=== PATIENT | female | born 1975 | race African-American/Black ===

== ENCOUNTER → 2019-06-19 | Emergency (ER) | payer SELFPAY ==
--- OUTSIDE RECORDS SUMMARY | 2019-06-19 17:55 | XMS REPORT ---
[facility] Address Unknown Phone Unavailable Care Team Providers Care Patient Insurance Clerk Name Role Phone Unavailable Unavailable Payers Payer Name Policy Type Policy Number Effective Date Expiration Date Problems This patient has no known problems. Allergies, Adverse Reactions, Alerts Allergy Name Allergy Type Status Severity Reaction(s) Onset Date Inactive Date Treating Clinician Comments NSAIDS (Non-Steroidal Anti-Inflamma DA Active [place] 2018-11-28 00:00:00 aspirin DA Active 2018-11-28 00:00:00 NSAIDS (Non-Steroidal Anti-Inflamma DA Active [place] 2017-01-13 00:00:00 aspirin DA Active [place] 2017-01-13 00:00:00 Medications This patient has no known medications. Encounters Start Date/Time End Date/Time Encounter Type Admission Type Attending Clinicians Care Facility Care Department Encounter ID 2018-12-04 23:17:00 2018-12-04 23:17:00 Emergency E [facility] [id number] 2018-10-10 19:02:00 2018-10-10 19:02:00 Emergency E [facility] [id number] 2018-09-29 20:36:00 2018-09-29 20:36:00 Emergency E [facility] 7508 2018-09-02 07:16:00 2018-09-02 07:16:00 Outpatient E [facility] CAR 7507 Results Test Description Test Time Test Comments Text Results Atomic Results Result Comments - XR KNEE 1 OR 2 V RT 2019-02-19 02:50:00 FAX: Ronald Escobedo MD [phone] [place]: St: REG FAX: Mateo Hale MD [phone] Name: ILENE ROBLERO [facility] : 1975 Age/S: 44/F [address] [place] [address] Unit #: [id number] Loc: [place] [address] Phys: Ronald Monson MD Acct: [id number] Dis Date: Status: REG ER PHONE #: [phone] Exam Date: 02/19/2019 0240 FAX #: [phone] Reason: right knee pain, and swelling , acute . last 3 EXAMS: CPT CODE: [id number] XR KNEE 1 OR 2 V RT [address]12 EXAM: CR, XR KNEE 1 OR 2 VIEW RT: 02/19/2019, 0215 hours History: Right knee pain and swelling COMPARISON: 11/28/2018 Findings: AP and lateral view of the right knee are submitted. Osseous alignment is satisfactory. Knee joint is intact. There are no acute fracture, dislocation or lytic bony lesion. Mild degenerative changes noted. No radiopaque foreign body seen. No appreciable joint effusion seen Visualized left hemithorax is unremarkable. Soft tissues are unremarkable. If indicated, follow-up radiograph or MR scan can be obtained for complete assessment IMPRESSION: 1. No acute fracture or dislocation of the right knee seen. SL:[JSYED-H] at 0250 Reported and signed by: Sae Woods M.D. CC: Ronald Monson MD; Mateo Arora MD Technologist: Ryan Clarso RT(R) Trnscrd Date/Time/By: 02/19/2019 (249) : By: [email or web address] Orig Print D/T: S: 02/19/2019 (0253) PAGE 1 Signed Report BASIC METABOLIC PANEL 2019-02-19 01:40:00 SODIUM (test code=NA) 142 mEq/L 134-147 POTASSIUM (test code=K) 4.0 mEq/L 3.4-5.0 CHLORIDE (test code=CL) 107 mEq/L 100-108 CARBON DIOXIDE (test code=CO2) 28 mEq/L 21-33 ANION GAP (test code=GAP) 11 0-20 GLUCOSE (test code=GLU) 106 mg/dL 70-110 BLOOD UREA NITROGEN (test code=BUN) 7 mg/dL 7-18 GLOMERULAR FILTRATION RATE (test code=GFR) 94.3 95-105 Units of measure=ml/min/1.73 m2 CREATININE (test code=CREAT) 0.8 mg/dL 0.6-1.3 CALCIUM (test code=CA) 8.7 mg/dL 8.0-10.5 HEPATIC FUNCTION [id number] 01:40:00* Test Item Value Reference Range Comments TOTAL PROTEIN (test code=PROT) 7.3 g/dL 6.4-8.2 ALBUMIN (test code=ALB) 3.70 g/dL 3.4-5.0 BILIRUBIN TOTAL (test code=BILT) 0.4 MG/DL <1.5 BILIRUBIN DIRECT (test code=BILD) 0.20 MG/DL 0.0-0.30 BILIRUBIN INDIRECT (test code=BILIND) 0.20 MG/DL SGOT/AST (test code=AST) 17 IUnit/L 15-37 SGPT/ALT (test code=ALT) 14 IUnit/L 15-65 ALKALINE PHOSPHATASE TOTAL (test code=ALKP) 65 IUnit/L 20-125 HCG SERUM [id number] 01:40:00* Test Item Value Reference Range Comments HCG SERUM QUAL (test code=HCGQL) SERUM NEGATIVE NEGATIVE [id number] 01:40:00* Test Item Value Reference Range Comments TROPONIN-I (test code=TROPI) < 0.015 ng/mL 0.000-0.045 Negative: <=0.045 Positive: >=0.046 Correlation with serial results, other cardiac markers andclinical findings is necessary to determine the clinicalsignificance of this result. Results using different methodologies should not be comparedto one another as quantitative results may vary by method. BASIC METABOLIC [id number] 01:38:00* Test Item Value Reference Range Comments SODIUM (test code=NA) mEq/L 134-147 POTASSIUM (test code=K) mEq/L 3.4-5.0 CHLORIDE (test code=CL) mEq/L 100-108 CARBON DIOXIDE (test code=CO2) mEq/L 21-33 ANION GAP (test code=GAP) 0-20 GLUCOSE (test code=GLU) mg/dL 70-110 BLOOD UREA NITROGEN (test code=BUN) mg/dL 7-18 GLOMERULAR FILTRATION RATE (test code=GFR) 95-105 CREATININE (test code=CREAT) mg/dL 0.6-1.3 CALCIUM (test code=CA) mg/dL 8.0-10.5 HEPATIC FUNCTION [id number] 01:38:00* Test Item Value Reference Range Comments TOTAL PROTEIN (test code=PROT) g/dL 6.4-8.2 ALBUMIN (test code=ALB) g/dL 3.4-5.0 BILIRUBIN TOTAL (test code=BILT) MG/DL <1.5 BILIRUBIN DIRECT (test code=BILD) MG/DL 0.0-0.30 SGOT/AST (test code=AST) IUnit/L 15-37 SGPT/ALT (test code=ALT) IUnit/L 15-65 ALKALINE PHOSPHATASE TOTAL (test code=ALKP) IUnit/L 20-125 HCG SERUM [id number] 01:38:00* Test Item Value Reference Range Comments HCG SERUM QUAL (test code=HCGQL) SERUM NEGATIVE NEGATIVE [id number] 01:38:00* Test Item Value Reference Range Comments TROPONIN-I (test code=TROPI) ng/mL 0.000-0.045 PROTHROMBIN [id number] 01:28:00* Test Item Value Reference Range Comments PROTHROMBIN TIME PATIENT (test code=PTP) 12.9 SECONDS 9.3-12.9 INTERNATIONAL NORMAL RATIO (test code=INR) 1.2 0.8-1.2 TARGET INR BY INDICATION Indication INR1. Prophylaxis of venous thrombosis 2.0 - 3.0 (orthopedic surgery), Prophylaxis of venous thrombosis (other than high-risk surgery), Treatment of Deep Vein Thrombosis/Pulmonary Embolism, Prevention of systemic embolism - Tissue heart valves, Acute Myocardial Infarction (to prevent systemic embolism), Valvular heart disease, Atrial Fibrillation, Bileaflet mechanical valve in aortic position.2. Mechanical prosthetic valves (high risk), 2.5 - 3.5 Presence of Lupus Anticoagulant or Antiphospholipid Antibodies, Prevention of systemic embolism - Acute Myocardial Infarction (to prevent recurrent infarct). CBC W/AUTO [id number] 01:21:00* Test Item Value Reference Range Comments WHITE BLOOD CELL (test code=WBC) 7.55 x10 3/uL 4.5-11.0 RED BLOOD CELL (test code=RBC) 3.87 x10 6/uL 3.54-5.02 HEMOGLOBIN (test code=HGB) 10.1 g/dL 11.0-15.0 HEMATOCRIT (test code=HCT) 34.5 % 33.0-45.0 MEAN CELL VOLUME (test code=MCV) 89.1 fL 81.0-99.0 MEAN CELL HGB (test code=MCH) 26.1 pg 27.0-33.0 MEAN CELL HGB CONCETRATION (test code=MCHC) 29.3 g/dL 33.0-37.0 RED CELL DISTRIBUTION WIDTH CV (test code=RDW) 15.6 % 11.5-14.5 RED CELL DISTRIBUTION WIDTH SD (test code=RDW-SD) 51.2 fL 37.0-54.0 PLATELET COUNT (test code=PLT) 318 x10 3/uL 150-400 MEAN PLATELET VOLUME (test code=MPV) 9.2 fL 7.0-9.0 NEUTROPHIL % (test code=NT%) 47.0 % 56.0-77.0 IMMATURE GRANULOCYTE % (test code=IG%) 0.3 % 0.0-2.0 LYMPHOCYTE % (test code=LY%) 39.1 % 14.0-32.0 MONOCYTE % (test code=MO%) 10.5 % 4.8-9.0 EOSINOPHIL % (test code=EO%) 2.4 % 0.3-3.7 BASOPHIL % (test code=BA%) 0.7 % 0.0-2.0 NUCLEATED RBC % (test code=NRBC%) 0.0 % 0-0 NEUTROPHIL # (test code=NT#) 3.56 x10 3/uL 2.0-7.6 IMMATURE GRANULOCYTE # (test code=IG#) 0.02 x10 3/uL 0.00-0.03 LYMPHOCYTE # (test code=LY#) 2.95 x10 3/uL 1.0-3.8 MONOCYTE # (test code=MO#) 0.79 x10 3/uL 0.1-0.8 EOSINOPHIL # (test code=EO#) 0.18 x10 3/uL 0.0-0.2 BASOPHIL # (test code=BA#) 0.05 x10 3/uL 0.0-0.2 NUCLEATED RBC # (test code=NRBC#) 0.00 x10 3/uL 0.0-0.1 MANUAL DIFF REQUIRED (test code=MDIFF) NO - XR CHEST 2 [id number] 00:36:00 FAX: Ronald Escobedo MD [phone] [place]: St: PRE FAX: Mateo Hale MD [phone] Name: ILENE ROBLERO [facility] : 1975 Age/S: 44/F [address] [place] [address] Unit #: [id number] Loc: [place] [address] Phys: Ronald Monson MD Acct: [id number] Dis Date: Status: PRE ER PHONE #: [phone] Exam Date: 02/19/2019 0025 FAX #: [phone] Reason: Chest Pain EXAMS: CPT CODE: [id number] XR CHEST 2 V 72413 EXAM: CR, XR chest 2 views: 02/19/2019, 0021 hours HISTORY: Chest Pain TECHNIQUE: Frontal and lateral chest radiograph are obtained COMPARISON: 06/30/2018. FINDINGS: Trachea is in midline. Heart is normal in size. Pulmonary vascularity is not congested. No airspace consolidation, pneumothorax or pleural effusion is seen. Osseous structures are stable. IMPRESSION: No acute cardiopulmonary disease seen. SL:[JSYED-H] at 0036 Reported and signed by: Sae Woods M.D. CC: Ronald Monson MD; Mateo Arora MD Technologist: RT Jerry(R) Trnscrd Date/Time/By: 02/19/2019 (0036) : By: [email or web address] Orig Print D/T: S: 02/19/2019 (0039) PAGE 1 Signed Report - CT ABD PELVIS [id number] 04:41:00 Name: ILENE ROBLERO [facility] : 1975 Age/S: 43 / F [address] [place] [address] Blvd Unit #: [id number] Loc: [place] [address] Phys: Cr Sommer NP Acct: [id number] Dis Date: Status: REG ER PHONE #: [phone] Exam Date: 12/05/2018404 FAX #: [phone] Reason: bilat lower abd pain EXAMS: CPT CODE: [id number] CT ABD PELVIS W/CONT 42461 CT ABDOMEN AND PELVIS WITH CONTRAST CLINICAL HISTORY: Bilateral lower abdominal pain. COMPARISON: CT 10/11/2018 TECHNIQUE: Multiple axial images of the abdomen and pelvis were performed after the administration oral and IV contrast. This exam was performed according to our departmental dose optimization program which includes automated exposure control, adjustment of the mA and/or kV according to patient size and/or use of iterative reconstruction technique. DLP: 576.40 FINDINGS: Lower chest: Bibasilar scattered subsegmental atelectasis. Liver: No significant findings. Gallbladder and biliary tree: No significant findings. Spleen: No significant findings. Adrenal Glands: No significant findings. Pancreas: No significant findings. Kidneys and ureters: No significant findings. Bowel: Oral contrast reaches the level of the cecum. No evidence of obstructing pattern. Small to moderate fecal load within the proximal colon, nonspecific. No bowel wall thickening. Appendix: Normal. Bladder: No significant findings. Major vascular stru ctures: No significant findings. Reproductive organs: Small 10 mm uterine fibroid is noted along the anterior uterine body. A 1.5 cm right ovarian corpus luteal cyst is noted. Other: No free air or adenopathy.No free fluid in noted. PAGE 1 Signed Rep ort (CONTINUED) Name: ILENE ROBLERO [facility] : 1975 Age/S: 43 / F [address] Unit #: [id number] Loc: [place] Vo 775 [address] Phys: Cr Sommer NP Acct: [id number] Dis Date: Status: REG ER PHONE #: [phone] Exam Date: 12/05/2018404 FAX #: [phone] Reason: bilat lower abd pain EXAMS: CPT CODE: [id number] CT ABD PELVIS W/CONT 55417 <Continued> Skeleton: No acute bony abnormality. IMPRESSION: No acute abnormality. Small uterine fibroid. Small to moderate fecal load within the proximal colon, nonspecific. A 1.5 cm right ovarian corpus luteal cyst is noted. No free fluid is noted within the pelvis. at 0441 Reported and signed by: Cedric Ingram M.D. CC: Cr Sommer NP; Mateo Arora MD Technologist:RT Jero(R) CTDI: DLP: Trnscb Date/Time: 12/05/2018 (044) [email or web address] Orig Print D/T: S: 12/05/2018 (0444) PAGE 2 Signed Report UR HCG [id number] 03:21:00* Test Item Value Reference Range Comments UR HCG QUAL (test code=HCGQLU) NEGATIVE NEGATIVE URINALYSIS [id number] 03:20:00* Test Item Value Reference Range Comments UA COLOR (test code=COLU) YELLOW YEL/STRAW UA APPEARANCE (test code=APPU) CLEAR CLEAR UA GLUCOSE DIPSTICK (test code=DGLUU) NEGATIVE NEGATIVE UA BILIRUBIN DIPSTICK (test code=BILU) NEGATIVE NEGATIVE UA KETONE DIPSTICK (test code=KETU) NEGATIVE NEGATIVE UA SPECIFIC GRAVITY (test code=SGU) 1.023 1.005-1.030 UA BLOOD DIPSTICK (test code=KITTY) NEGATIVE NEGATIVE UA PH DIPSTICK (test code=CAITLIN) 7.0 5.0-7.0 UA PROTEIN DIPSTICK (test code=PROU) NEGATIVE NEGATIVE UA UROBILINIOGEN DIPSTICK (test code=URO) 0.2 mg/dL 0.2-1.0 UA NITRITE DIPSTICK (test code=FLORES) NEGATIVE NEGATIVE UA LEUKOCYTE ESTERASE DIPSTICK (test code=LEUU) NEGATIVE NEGATIVE UA WBC (test code=WBCU) 0-3 WBC/HPF 0-3 UA RBC (test code=RBCU) 0-3 RBC/HPF 0-3 UA BACTERIA (test code=BACU) TRACE /HPF NONE SEEN UA SQUAMOUS CELLS (test code=SQU) 6-10 /HPF NONE SEEN UA MUCUS (test code=MUCU) TRACE /LPF NONE SEEN BASIC METABOLIC [id number] 02:08:00* Test Item Value Reference Range Comments SODIUM (test code=NA) 139 mEq/L 134-147 POTASSIUM (test code=K) 4.2 mEq/L 3.4-5.0 CHLORIDE (test code=CL) 109 mEq/L 100-108 CARBON DIOXIDE (test code=CO2) 26 mEq/L 21-33 ANION GAP (test code=GAP) 8 0-20 GLUCOSE (test code=GLU) 85 mg/dL 70-110 BLOOD UREA NITROGEN (test code=BUN) 15 mg/dL 7-18 GLOMERULAR FILTRATION RATE (test code=GFR) 65.6 95-105 Units of measure=ml/min/1.73 m2 CREATININE (test code=CREAT) 1.1 mg/dL 0.6-1.3 CALCIUM (test code=CA) 8.5 mg/dL 8.0-10.5 HEPATIC FUNCTION [id number] 02:08:00* Test Item Value Reference Range Comments TOTAL PROTEIN (test code=PROT) 7.6 g/dL 6.4-8.2 ALBUMIN (test code=ALB) 3.40 g/dL 3.4-5.0 BILIRUBIN TOTAL (test code=BILT) 0.30 mg/dL 0.0-1.0 BILIRUBIN DIRECT (test code=BILD) < 0.10 MG/DL 0.0-0.30 BILIRUBIN INDIRECT (test code=BILIND) 0.20 MG/DL SGOT/AST (test code=AST) 18 IUnit/L 15-37 SGPT/ALT (test code=ALT) 12 IUnit/L 15-65 ALKALINE PHOSPHATASE TOTAL (test code=ALKP) 62 IUnit/L 20-125 [id number] 02:08:00* Test Item Value Reference Range Comments LIPASE (test code=LIP) 170 IUnit/L 73-393 CBC W/AUTO [id number] 01:54:00* Test Item Value Reference Range Comments WHITE BLOOD CELL (test code=WBC) 8.09 x10 3/uL 4.5-11.0 RED BLOOD CELL (test code=RBC) 4.12 x10 6/uL 3.54-5.02 HEMOGLOBIN (test code=HGB) 10.8 g/dL 11.0-15.0 HEMATOCRIT (test code=HCT) 36.1 % 33.0-45.0 MEAN CELL VOLUME (test code=MCV) 87.6 fL 81.0-99.0 MEAN CELL HGB (test code=MCH) 26.2 pg 27.0-33.0 MEAN CELL HGB CONCETRATION (test code=MCHC) 29.9 g/dL 33.0-37.0 RED CELL DISTRIBUTION WIDTH CV (test code=RDW) 16.1 % 11.5-14.5 RED CELL DISTRIBUTION WIDTH SD (test code=RDW-SD) 51.9 fL 37.0-54.0 PLATELET COUNT (test code=PLT) 297 x10 3/uL 150-400 MEAN PLATELET VOLUME (test code=MPV) 9.2 fL 7.0-9.0 NEUTROPHIL % (test code=NT%) 71.8 % 56.0-77.0 IMMATURE GRANULOCYTE % (test code=IG%) 0.4 % 0.0-2.0 LYMPHOCYTE % (test code=LY%) 16.8 % 14.0-32.0 MONOCYTE % (test code=MO%) 9.4 % 4.8-9.0 EOSINOPHIL % (test code=EO%) 1.1 % 0.3-3.7 BASOPHIL % (test code=BA%) 0.5 % 0.0-2.0 NUCLEATED RBC % (test code=NRBC%) 0.0 % 0-0 NEUTROPHIL # (test code=NT#) 5.81 x10 3/uL 2.0-7.6 IMMATURE GRANULOCYTE # (test code=IG#) 0.03 x10 3/uL 0.00-0.03 LYMPHOCYTE # (test code=LY#) 1.36 x10 3/uL 1.0-3.8 MONOCYTE # (test code=MO#) 0.76 x10 3/uL 0.1-0.8 EOSINOPHIL # (test code=EO#) 0.09 x10 3/uL 0.0-0.2 BASOPHIL # (test code=BA#) 0.04 x10 3/uL 0.0-0.2 NUCLEATED RBC # (test code=NRBC#) 0.00 x10 3/uL 0.0-0.1 MANUAL DIFF REQUIRED (test code=MDIFF) NO - XR KNEE 3 V [id number] 16:13:00 FAX: Rogelio Christina MD [phone] [place]: St: PRE FAX: Mateo Hale MD [phone] Name: ILENE ROBLERO [facility] : 1975 Age/S: 43/F [address] [place] [address] Unit #: [id number] [facility] [address] Phys: Rogelio Christina MD Acct: [id number] Dis Date: Status: PRE ER PHONE #: [phone] Exam Date: 11/28/2018 1612 FAX #: [phone] Reason: fall, knee pain and s welling EXAMS: CPT CODE: [id number] XR KNEE 3 [place] RT [address] PROCEDURE: Right knee 3 views INDICATION: fall, k nee pain and swelling COMPARISON: None. FINDINGS: A P, oblique and lateral projections of the right knee were obtained. No fra cture, dislocation or other acute skeletal abnormality. Minimal osteophyte formation. The joint spaces are maintained. The soft tissues are normal w ithout evidence for joint effusion. IMPRESSION: No acute r adiographic abnormality. SL: [id number] * * Electronically Signed by Norm Razo on 0 11/28/2018 at 1613 Reported and signed by: Nnamdi Razo M.D. CC: Rogelio Christina MD; Mateo Wagner Technologist: VIELKA Carmona) Trnscrd Date/Time/By: 11/28/2018 (1383) : By: [email or web address] Orig Print D/T: S: 11/28/2018 (3732) PAGE 1 Signed Report - CT ABD PELVIS W/CONT 2018-10-11 16:23:00 Name: ILENE ROBLERO [facility] : 1975 Age/S: 43 / F [address] [place] [address] Unit #: [id number] Loc: [place] [address] Phys: Hung Alexander Acct: [id number] Dis Date: Status: REG ER PHONE #: [phone] Exam Date: 10/11/2018 1548 FAX #: [phone] Reason: Diffuse abdominal pain, vomiting and diarrhea EXAMS: CPT CODE: [id number] CT ABD PELVIS W/CONT [address]241 CT ABDOMEN AND PELVIS WITH CONTRAST HISTORY: Diffuse abdominal pain, vomiting and diarrhea TECHNIQUE: Helical scan of the abdomen and pelvis was performed from the domes of the diaphragm through the symphysis. Reformatted sagittal and coronal images are included. IV CONTRAST: 100 cc Isovue 300. ORAL CONTRAST: 10 mL Gastrografin diluted with 900 mL water. DLP: 1485 mGy-cm COMPARISON: CT without contrast 12/27/2014. FINDINGS: LOWER CHEST: The lung bases are clear. No pleural abnormality. Included mediastinum is grossly normal. LIVER: Normal. GALLBLADDER: Normal appearance of the gallbladder (non calcified stones may not be visible on CT). SPLEEN: Normal appearance of the spleen. PANCREAS: Normal. ADRENALS: Normal. KIDNEYS: Normal. BOWEL, MESENTERY: No evidence of acute bowel pathology. No mesenteric inflammation, adenopathy or mass. APPENDIX: Normal appearance of the appendix. PERITONEUM: No significant free fluid or extraluminal gas. RETROPERITONEUM: No significant inflammation, mass or adenopathy. Normal appearance of the aorta. ABDOMINAL WALL: No significant abnormality. PELVIS: Small fibroid is suggested anteriorly within the uterus. Normal appearance of the urinary bladder. No mass, inflammatory PAGE 1 Signed Report (CONTINUED) Name: ILENE ROBLERO [facility] : 1975 Age/S: 43 / F [address] [place] [address] Unit #: [id number] Loc: [place] [address] Phys: Hung Alexander Acct: [id number] Dis Date: Status: REG ER PHONE #: [phone] Exam Date: 0 10/11/2018 1548 FAX #: [phone] Reason: Diffuse abd ominal pain, vomiting and diarrhea EXAMS: CPT CODE: [id number] CT ABD PELVIS W/CONT 12618 <Continued> change, lymphadenopathy or significant free fluid. No significant inguinal abnormality. MUSCULOSKELETAL: No significant skeletal abnormality is apparent. IMPRESSION: No acute finding. Suggestion of a small anterior uterine fibroid. SL: [id number] at 1623 Reported and signed by: Taye Medina M.D. CC: Hung SEQUEIRA; Mateo Arora MD Technologist:Kelly Genao, RT(R)(CT) CTDI: DLP: Trnscb Date/Time: 10/11/2018 (1623) [email or web address] Orig Print D/T: S: 10/11/2018 (2090) PAGE 2 Signed Report URINALYSIS [id number] 15:56:00* Test Item Value Reference Range Comments UA COLOR (test code=COLU) YELLOW YEL/STRAW UA APPEARANCE (test code=APPU) CLEAR CLEAR UA GLUCOSE DIPSTICK (test code=DGLUU) NEGATIVE NEGATIVE UA BILIRUBIN DIPSTICK (test code=BILU) NEGATIVE NEGATIVE UA KETONE DIPSTICK (test code=KETU) NEGATIVE NEGATIVE UA SPECIFIC GRAVITY (test code=SGU) 1.025 1.005-1.030 UA BLOOD DIPSTICK (test code=KITTY) 1+ NEGATIVE UA PH DIPSTICK (test code=CAITLIN) 5.0 5.0-7.0 UA PROTEIN DIPSTICK (test code=PROU) 2+ NEGATIVE UA UROBILINIOGEN DIPSTICK (test code=URO) 2.0 mg/dL 0.2-1.0 UA NITRITE DIPSTICK (test code=FLORES) NEGATIVE NEGATIVE UA LEUKOCYTE ESTERASE DIPSTICK (test code=LEUU) NEGATIVE NEGATIVE UA WBC (test code=WBCU) 0-3 WBC/HPF 0-3 UA RBC (test code=RBCU) 0-3 RBC/HPF 0-3 UA BACTERIA (test code=BACU) NONE SEEN /HPF NONE SEEN UA SQUAMOUS CELLS (test code=SQU) 0-5 /HPF NONE SEEN UA MUCUS (test code=MUCU) 4+ /LPF NONE SEEN COMMENTS: Clean CatchURINALYSIS [id number] 15:50:00* Test Item Value Reference Range Comments UA COLOR (test code=COLU) YELLOW YEL/STRAW UA APPEARANCE (test code=APPU) CLEAR CLEAR UA GLUCOSE DIPSTICK (test code=DGLUU) NEGATIVE NEGATIVE UA BILIRUBIN DIPSTICK (test code=BILU) NEGATIVE NEGATIVE UA KETONE DIPSTICK (test code=KETU) NEGATIVE NEGATIVE UA SPECIFIC GRAVITY (test code=SGU) 1.025 1.005-1.030 UA BLOOD DIPSTICK (test code=KITTY) 1+ NEGATIVE UA PH DIPSTICK (test code=CAITLIN) 5.0 5.0-7.0 UA PROTEIN DIPSTICK (test code=PROU) 2+ NEGATIVE UA UROBILINIOGEN DIPSTICK (test code=URO) 2.0 mg/dL 0.2-1.0 UA NITRITE DIPSTICK (test code=FLORES) NEGATIVE NEGATIVE UA LEUKOCYTE ESTERASE DIPSTICK (test code=LEUU) NEGATIVE NEGATIVE UA WBC (test code=WBCU) WBC/HPF 0-3 UA RBC (test code=RBCU) RBC/HPF 0-3 COMMENTS: Clean CatchPROTHROMBIN [id number] 15:23:00* Test Item Value Reference Range Comments PROTHROMBIN TIME PATIENT (test code=PTP) 13.9 SECONDS 9.3-12.9 INTERNATIONAL NORMAL RATIO (test code=INR) 1.2 0.8-1.2 TARGET INR BY INDICATION Indication INR1. Prophylaxis of venous thrombosis 2.0 - 3.0 (orthopedic surgery), Prophylaxis of venous thrombosis (other than high-risk surgery), Treatment of Deep Vein Thrombosis/Pulmonary Embolism, Prevention of systemic embolism - Tissue heart valves, Acute Myocardial Infarction (to prevent systemic embolism), Valvular heart disease, Atrial Fibrillation, Bileaflet mechanical valve in aortic position.2. Mechanical prosthetic valves (high risk), 2.5 - 3.5 Presence of Lupus Anticoagulant or Antiphospholipid Antibodies, Prevention of systemic embolism - Acute Myocardial Infarction (to prevent recurrent infarct). THROMBOPLASTIN TIME [id number] 15:23:00* Test Item Value Reference Range Comments THROMBOPLASTIN TIME PARTIAL (test code=PTT) 29.8 Seconds 25.0-39.5 Therapeutic Range: 50.4 - 88.3 Seconds Effective 08/27/2018 COMPREHENSIVE METABOLIC [id number] 15:21:00* Test Item Value Reference Range Comments SODIUM (test code=NA) 137 mEq/L 134-147 POTASSIUM (test code=K) 4.0 mEq/L 3.4-5.0 CHLORIDE (test code=CL) 103 mEq/L 100-108 CARBON DIOXIDE (test code=CO2) 26 mEq/L 21-33 ANION GAP (test code=GAP) 12 0-20 GLUCOSE (test code=GLU) 123 mg/dL 70-110 BLOOD UREA NITROGEN (test code=BUN) 12 mg/dL 7-18 GLOMERULAR FILTRATION RATE (test code=GFR) 73.2 95-105 Units of measure=ml/min/1.73 m2 CREATININE (test code=CREAT) 1.0 mg/dL 0.6-1.3 TOTAL PROTEIN (test code=PROT) 8.2 g/dL 6.4-8.2 ALBUMIN (test code=ALB) 3.80 g/dL 3.4-5.0 CALCIUM (test code=CA) 8.6 mg/dL 8.0-10.5 BILIRUBIN TOTAL (test code=BILT) 0.50 mg/dL 0.0-1.0 SGOT/AST (test code=AST) 17 IUnit/L 15-37 SGPT/ALT (test code=ALT) 16 IUnit/L 15-65 ALKALINE PHOSPHATASE TOTAL (test code=ALKP) 69 IUnit/L 20-125 [id number] 15:21:00* Test Item Value Reference Range Comments LIPASE (test code=LIP) 133 IUnit/L 73-393 HCG SERUM [id number] 15:21:00* Test Item Value Reference Range Comments HCG SERUM QUAL (test code=HCGQL) SERUM NEGATIVE NEGATIVE [id number] 15:21:00* Test Item Value Reference Range Comments TROPONIN-I (test code=TROPI) < 0.015 ng/mL 0.000-0.045 Negative: <=0.045 Positive: >=0.046 Correlation with serial results, other cardiac markers andclinical findings is necessary to determine the clinicalsignificance of this result. Results using different methodologies should not be comparedto one another as quantitative results may vary by method. COMPREHENSIVE METABOLIC [id number] 15:16:00* Test Item Value Reference Range Comments SODIUM (test code=NA) mEq/L 134-147 POTASSIUM (test code=K) mEq/L 3.4-5.0 CHLORIDE (test code=CL) mEq/L 100-108 CARBON DIOXIDE (test code=CO2) mEq/L 21-33 ANION GAP (test code=GAP) 0-20 GLUCOSE (test code=GLU) mg/dL 70-110 BLOOD UREA NITROGEN (test code=BUN) mg/dL 7-18 GLOMERULAR FILTRATION RATE (test code=GFR) 95-105 CREATININE (test code=CREAT) mg/dL 0.6-1.3 TOTAL PROTEIN (test code=PROT) g/dL 6.4-8.2 ALBUMIN (test code=ALB) g/dL 3.4-5.0 CALCIUM (test code=CA) mg/dL 8.0-10.5 BILIRUBIN TOTAL (test code=BILT) mg/dL 0.0-1.0 SGOT/AST (test code=AST) IUnit/L 15-37 SGPT/ALT (test code=ALT) IUnit/L 15-65 ALKALINE PHOSPHATASE TOTAL (test code=ALKP) IUnit/L 20-125 [id number] 15:16:00* Test Item Value Reference Range Comments LIPASE (test code=LIP) IUnit/L 73-393 HCG SERUM [id number] 15:16:00* Test Item Value Reference Range Comments HCG SERUM QUAL (test code=HCGQL) SERUM NEGATIVE NEGATIVE [id number] 15:16:00* Test Item Value Reference Range Comments TROPONIN-I (test code=TROPI) ng/mL 0.000-0.045 CBC W/AUTO [id number] 15:05:00* Test Item Value Reference Range Comments WHITE BLOOD CELL (test code=WBC) 6.91 x10 3/uL 4.5-11.0 RED BLOOD CELL (test code=RBC) 4.49 x10 6/uL 3.54-5.02 HEMOGLOBIN (test code=HGB) 11.7 g/dL 11.0-15.0 HEMATOCRIT (test code=HCT) 38.1 % 33.0-45.0 MEAN CELL VOLUME (test code=MCV) 84.9 fL 81.0-99.0 MEAN CELL HGB (test code=MCH) 26.1 pg 27.0-33.0 MEAN CELL HGB CONCETRATION (test code=MCHC) 30.7 g/dL 33.0-37.0 RED CELL DISTRIBUTION WIDTH CV (test code=RDW) 15.7 % 11.5-14.5 RED CELL DISTRIBUTION WIDTH SD (test code=RDW-SD) 48.4 fL 37.0-54.0 PLATELET COUNT (test code=PLT) 281 x10 3/uL 150-400 MEAN PLATELET VOLUME (test code=MPV) 9.6 fL 7.0-9.0 NEUTROPHIL % (test code=NT%) 61.0 % 56.0-77.0 IMMATURE GRANULOCYTE % (test code=IG%) 0.3 % 0.0-2.0 LYMPHOCYTE % (test code=LY%) 25.9 % 14.0-32.0 MONOCYTE % (test code=MO%) 11.4 % 4.8-9.0 EOSINOPHIL % (test code=EO%) 0.7 % 0.3-3.7 BASOPHIL % (test code=BA%) 0.7 % 0.0-2.0 NUCLEATED RBC % (test code=NRBC%) 0.0 % 0-0 NEUTROPHIL # (test code=NT#) 4.21 x10 3/uL 2.0-7.6 IMMATURE GRANULOCYTE # (test code=IG#) 0.02 x10 3/uL 0.00-0.03 LYMPHOCYTE # (test code=LY#) 1.79 x10 3/uL 1.0-3.8 MONOCYTE # (test code=MO#) 0.79 x10 3/uL 0.1-0.8 EOSINOPHIL # (test code=EO#) 0.05 x10 3/uL 0.0-0.2 BASOPHIL # (test code=BA#) 0.05 x10 3/uL 0.0-0.2 NUCLEATED RBC # (test code=NRBC#) 0.00 x10 3/uL 0.0-0.1 MANUAL DIFF REQUIRED (test code=MDIFF) NO TROPONIN-I [id number] 02:49:00* Test Item Value Reference Range Comments TROPONIN-I RAPID (test code=TROPIRAP) 0.00 ng/mL 0.00-0.08 Performed by certified survey instrument operator at [facility] Global Task Force with joint leadership from the EuropeanSociety of Cardiology (ESC), the [place] [employer] Foundation (ACCF), the [place] [employer] Association(AHA) and the World Heart Federation (WHF) refined past criteria of myocardial infarction ([place]) with a universal definition of myocardial infarction that supports the use of cTnI as a preferred biomarker for myocardial injury. The universal definition of W[place], according to this taskforce, is defined as a typical rise and gradual fall ofcardiac biomarkers (preferably troponin) with at least onevalue above the 99th percentile of the upper reference limit (URL) together with evidence of myocardial ischemia with at least one of the following:* ischemic symptoms,* pathological Q waves on electrocardiogram (ECG),* ischemic ECG changes,* or imaging evidence of new loss of viable myocardium or new regional wall motion abnormality. An elevated troponin value alone is not sufficient todiagnose a myocardial infarction. Rather, the patient sclinical presentation (history, physical exam) and ECGshould be used in conjunction with troponin in thediagnostic evaluation of suspected myocardial infarction. Aserial sampling protocol is recommended to facilitate the identification of temporal changes in troponin levels characteristic of W[place]. TROPONIN-I [id number] 01:21:00* Test Item Value Reference Range Comments TROPONIN-I RAPID (test code=TROPIRAP) 0.00 ng/mL 0.00-0.08 Performed by certified survey instrument operator at [facility] Global Task Force with joint leadership from the EuropeanSociety of Cardiology (ESC), the [place] [employer] Foundation (ACCF), the [place] Heart Association(AHA) and the World Heart Federation (WHF) refined past criteria of myocardial infarction ([place]) with a universal definition of myocardial infarction that supports the use of cTnI as a preferred biomarker for myocardial injury. The universal definition of W[place], according to this taskforce, is defined as a typical rise and gradual fall ofcardiac biomarkers (preferably troponin) with at least onevalue above the 99th percentile of the upper reference limit (URL) together with evidence of myocardial ischemia with at least one of the following:* ischemic symptoms,* pathological Q waves on electrocardiogram (ECG),* ischemic ECG changes,* or imaging evidence of new loss of viable myocardium or new regional wall motion abnormality. An elevated troponin value alone is not sufficient todiagnose a myocardial infarction. Rather, the patient sclinical presentation (history, physical exam) and ECGshould be used in conjunction with troponin in thediagnostic evaluation of suspected myocardial infarction. Aserial sampling protocol is recommended to facilitate the identification of temporal changes in troponin levels characteristic of [place]. CBC W/AUTO [id number] 01:19:00* Test Item Value Reference Range Comments WHITE BLOOD CELL (test code=WBC) 6.05 x10 3/uL 4.5-11.0 RED BLOOD CELL (test code=RBC) 4.37 x10 6/uL 3.54-5.02 HEMOGLOBIN (test code=HGB) 11.3 g/dL 11.0-15.0 HEMATOCRIT (test code=HCT) 39.1 % 33.0-45.0 MEAN CELL VOLUME (test code=MCV) 89.5 fL 81.0-99.0 MEAN CELL HGB (test code=MCH) 25.9 pg 27.0-33.0 MEAN CELL HGB CONCETRATION (test code=MCHC) 28.9 g/dL 33.0-37.0 RED CELL DISTRIBUTION WIDTH CV (test code=RDW) 16.2 % 11.5-14.5 RED CELL DISTRIBUTION WIDTH SD (test code=RDW-SD) 53.1 fL 37.0-54.0 PLATELET COUNT (test code=PLT) 352 x10 3/uL 150-400 MEAN PLATELET VOLUME (test code=MPV) 9.7 fL 7.0-9.0 NEUTROPHIL % (test code=NT%) 52.1 % 56.0-77.0 IMMATURE GRANULOCYTE % (test code=IG%) 0.3 % 0.0-2.0 LYMPHOCYTE % (test code=LY%) 33.4 % 14.0-32.0 MONOCYTE % (test code=MO%) 10.4 % 4.8-9.0 EOSINOPHIL % (test code=EO%) 2.8 % 0.3-3.7 BASOPHIL % (test code=BA%) 1.0 % 0.0-2.0 NUCLEATED RBC % (test code=NRBC%) 0.0 % 0-0 NEUTROPHIL # (test code=NT#) 3.15 x10 3/uL 2.0-7.6 IMMATURE GRANULOCYTE # (test code=IG#) 0.02 x10 3/uL 0.00-0.03 LYMPHOCYTE # (test code=LY#) 2.02 x10 3/uL 1.0-3.8 MONOCYTE # (test code=MO#) 0.63 x10 3/uL 0.1-0.8 EOSINOPHIL # (test code=EO#) 0.17 x10 3/uL 0.0-0.2 BASOPHIL # (test code=BA#) 0.06 x10 3/uL 0.0-0.2 NUCLEATED RBC # (test code=NRBC#) 0.00 x10 3/uL 0.0-0.1 MANUAL DIFF REQUIRED (test code=MDIFF) NO CHEMISTRY 8 [id number] 01:15:00* Test Item Value Reference Range Comments ISTAT-SODIUM (test code=NAP) MMOL/L 134-147 ISTAT-POTASSIUM (test code=KP) MMOL/L 3.4-5.0 ISTAT-CHLORIDE (test code=CLP) MMOL/L 100-108 ISTAT CARBON DIOXIDE (test code=ISTAT-CO2) mmol/L 21-33 ISTAT CALCIUM IONIZED (test code=ISTAT-MOY) MG/DL 1.12-1.32 ISTAT-GLUCOSE (test code=GLUP) MG/DL 70-110 ISTAT-BUN (test code=BUNP) MG/DL 7-18 BEDSIDE CREATININE (test code=CREATBED) MG/DL 0.6-1.3 GLOMERULAR FILTRATION RATE POC (test code=GFRBED) 63 ML/MIN CHEMISTRY 8 [id number] 01:15:00* Test Item Value Reference Range Comments ISTAT-SODIUM (test code=NAP) 141 MMOL/L 134-147 ISTAT-POTASSIUM (test code=KP) 3.6 MMOL/L 3.4-5.0 ISTAT-CHLORIDE (test code=CLP) 102 MMOL/L 100-108 Performed by certified survey instrument operator at [facility] ISTAT CARBON DIOXIDE (test code=ISTAT-CO2) 28.0 mmol/L 21-33 ISTAT CALCIUM IONIZED (test code=ISTAT-MOY) 1.19 MG/DL 1.12-1.32 ISTAT-GLUCOSE (test code=GLUP) 103 MG/DL 70-110 ISTAT-BUN (test code=BUNP) 11 MG/DL 7-18 BEDSIDE CREATININE (test code=CREATBED) 1.2 MG/DL 0.6-1.3 GLOMERULAR FILTRATION RATE POC (test code=GFRBED) 63 ML/MIN - XR CHEST 1 [id number] 00:57:00 FAX: Kaylynn Bardales [phone] [place]: St: [facility] FAX: Mateo Hale MD [phone] Name: ILENE ROBLERO [facility] : 1975 Age/S: 43/F [address] [place] [address] Unit #: [id number] Loc: [place] [address] Phys: Kaylynn Jennings Acct: [id number] Dis Date: Status: REG ER PHONE #: [phone] Exam Date: 06/30/2018 0053 FAX #: [phone] Reason: Chest Pain EXAMS: CPT CODE: [id number] XR CHEST 1 V 66095 EXAM: CR, XR chest one view: 06/30/2018 HISTORY: Chest Pain TECHNIQUE: 1 view of the chest. COMPARISON: 05/31/2018 FINDINGS: Trachea is midline. Heart is normal in size. Pulmonary vascularity is unremarkable. There is no airspace consolidation, pleural effusion or pneumothorax. No significant osseous abnormalities are seen. IMPRESSION: No acute cardiopulmonary disease seen. SL: [[id number]-H] at 0057 Reported and signed by: Sae Woods M.D. CC: Kaylynn SEQUEIRA; Mateo Arora MD Technologist: Bharti [place], RT(R); Thnog Mishra Trnrird Date/Time/By: 06/30/2018 (0057) : By: [email or web address] Orig Print D/T: S: 06/30/2018 (0100) PAGE 1 Signed Report COMPREHENSIVE METABOLIC PANEL 2018-05-31 20:53:00* Test Item Value Reference Range Comments SODIUM (test code=NA) 137 mmol/L 134-147 POTASSIUM (test code=K) 3.9 mmol/L 3.4-5.0 CHLORIDE (test code=CL) 105 mmol/L 100-108 CARBON DIOXIDE (test code=CO2) 24 mmol/L 21-32 ANION GAP (test code=GAP) 8.0 GAP calc 4.0-15.0 GLUCOSE (test code=GLU) 90 MG/DL 70-110 BLOOD UREA NITROGEN (test code=BUN) 10 MG/DL 7-18 GLOMERULAR FILTRATION RATE (test code=GFR) estGFR >60 CREATININE (test code=CREAT) MG/DL 0.6-1.0 TOTAL PROTEIN (test code=PROT) G/DL 6.4-8.2 ALBUMIN (test code=ALB) G/DL 3.4-5.0 GLOBULIN (test code=GLOB) GM/dL ALBUMIN/GLOBULIN RATIO (test code=A/G) RATIO 1.2-2.2 CALCIUM (test code=CA) 7.9 MG/DL 8.5-10.1 BILIRUBIN TOTAL (test code=BILT) MG/DL 0.2-1.2 SGOT/AST (test code=AST) Unit/L 15-37 SGPT/ALT (test code=ALT) Unit/L 12-78 ALKALINE PHOSPHATASE TOTAL (test code=ALKP) Unit/L 45-117 Completed by Nursing: [facility] SERUM [id number] 20:53:00* Test Item Value Reference Range Comments HCG SERUM QUAL (test code=HCGQL) SCREEN NEGATIVE Completed by Nursing: [id number] 20:53:00* Test Item Value Reference Range Comments TROPONIN-I (test code=TROPI) NG/ML 0.000-0.045 Completed by Nursing: NOCOMPREHENSIVE METABOLIC [id number] 20:53:00* Test Item Value Reference Range Comments SODIUM (test code=NA) 137 mmol/L 134-147 POTASSIUM (test code=K) 3.9 mmol/L 3.4-5.0 CHLORIDE (test code=CL) 105 mmol/L 100-108 CARBON DIOXIDE (test code=CO2) 24 mmol/L 21-32 ANION GAP (test code=GAP) 8.0 GAP calc 4.0-15.0 GLUCOSE (test code=GLU) 90 MG/DL 70-110 BLOOD UREA NITROGEN (test code=BUN) 10 MG/DL 7-18 GLOMERULAR FILTRATION RATE (test code=GFR) >=60 max estimate estGFR >60 CREATININE (test code=CREAT) 1.0 MG/DL 0.6-1.0 TOTAL PROTEIN (test code=PROT) 7.6 G/DL 6.4-8.2 ALBUMIN (test code=ALB) 3.4 G/DL 3.4-5.0 GLOBULIN (test code=GLOB) 4.2 GM/dL ALBUMIN/GLOBULIN RATIO (test code=A/G) 0.8 RATIO 1.2-2.2 CALCIUM (test code=CA) 7.9 MG/DL 8.5-10.1 BILIRUBIN TOTAL (test code=BILT) 0.30 MG/DL 0.2-1.2 SGOT/AST (test code=AST) 23 Unit/L 15-37 SGPT/ALT (test code=ALT) 14 Unit/L 12-78 ALKALINE PHOSPHATASE TOTAL (test code=ALKP) 65 Unit/L 45-117 Completed by Nursing: JOJOG SERUM [id number] 20:53:00* Test Item Value Reference Range Comments HCG SERUM QUAL (test code=HCGQL) SCREEN NEGATIVE Completed by Nursing: [id number] 20:53:00* Test Item Value Reference Range Comments TROPONIN-I (test code=TROPI) < 0.015 NG/ML 0.000-0.045 Negative: </=0.045 Positive: >/=0.046 Correlation with serial results, other cardiac markers, and clinical findings is necessary to determine the clinical significance of this result. Quantitative results using different methodologies should not be compared to one another as numerical results may varyby method. Completed by Nursing: ANITA W/AUTO [id number] 20:22:00* Test Item Value Reference Range Comments WHITE BLOOD CELL (test code=WBC) 7.7 K/mm3 3.5-11.0 RED BLOOD CELL (test code=RBC) 4.28 M/mm3 4.70-6.10 HEMOGLOBIN (test code=HGB) 11.7 G/DL 10.4-14.9 HEMATOCRIT (test code=HCT) 37.6 % 31.5-44.1 MEAN CELL VOLUME (test code=MCV) 87.9 Fl 84.5-98.6 MEAN CELL HGB (test code=MCH) 27.3 pg 27.0-34.2 MEAN CELL HGB CONCETRATION (test code=MCHC) 31.1 G/DL 31.5-34.0 RED CELL DISTRIBUTION WIDTH (test code=RDW) 16.4 SD 11.5-14.5 PLATELET COUNT (test code=PLT) 180.0 K/mm3 150-450 MEAN PLATELET VOLUME (test code=MPV) 10.10 fL 7.0-10.5 NEUTROPHIL % (test code=NT%) 73.7 % 40-76 LYMPHOCYTE % (test code=LY%) 15.6 % 20.5-51.1 MONOCYTE % (test code=MO%) 9.5 % 1.7-9.3 EOSINOPHIL % (test code=EO%) 0.9 % 0.0-6.0 BASOPHIL % (test code=BA%) 0.3 % 0.0-2.0 NEUTROPHIL # (test code=NT#) 5.65 K/mm3 1.8-7.6 LYMPHOCYTE # (test code=LY#) 1.2 K/mm3 0.6-3.2 MONOCYTE # (test code=MO#) 0.7 K/mm3 0.3-1.1 EOSINOPHIL # (test code=EO#) 0.1 K/mm3 0.0-0.4 BASOPHIL # (test code=BA#) 0.0 K/mm3 0.0-0.1 MANUAL DIFF REQUIRED (test code=MDIFF) NO DIFF/SCN CRITERIA - XR CHEST 1 [id number] 20:18:00 Name: ILENE ROBLERO [facility] : 1975 Age/S: 43 / F [address] [address] Unit #: [id number] Loc: [place] [address] Phys: Yvon Bustillo MD Acct: [id number] Dis Date: Status: REG ER PHONE #: [phone] Exam Date: 05/31/20182006 FAX #: Reason: arm pain EXAMS: CPT: [id number] XR CHEST 1 V 29321 Fluoro Time: DAP (Gy m2): Air Kerma (mGy): EXAMINATION: - XR CHEST 1 V. LOCATION: S17. HISTORY: Right arm pain. COMPARISON: 06/13/2017. FINDINGS: Examination is limited due to portable technique, patient body habitus and low lung volumes. Cardiac silhouette/Mediastinal contour: Within normal limits. Lungs: No focal consolidation. No large pleural effusion. Osseous Structures: No acute osseous abnormalities. IMPRESSION: Low lung volumes, no focal consolidation. E lectronically Signed by Norm Hauser on 05/31/2018 at 2018 Reported and signed by: Rosana Hauser M.D. CC: Yvon Bustillo MD; Mateo Arora MD PAGE 1 Signed Report Name: ILENE [facility] : 1975 Age/S: 43 / F [address] [place] [address] Unit #: [id number] Loc: [place] [address] Phys: Yvon Bustillo MD Acct: [id number] Dis Date: Status: REG ER PHONE #: [phone] Exam Date: 05/31/20182006 FAX #: Reason: arm pain EXAMS: CPT: [id number] XR CHEST 1 V 68297 Fluoro Time : DAP (Gy m2): Air Kerma (mGy): <Continued> Technologist: Cory Gupta, RT(R)(CT) Trnscb León e/Time: 05/31/2018 (2018) [email or web address] Orig Print D/T: S: (2020) PAGE 2 Signed Report - XR SHOULDER 2+V RT 2018-05-31 20:16:00 Name: ILENE ROBLERO [facility] : 1975 Age/S: 43 / F [address] Unit #: [id number] Loc: [place] [address] Phys: Yvon Bustillo MD Acct: [id number] Dis Date: Status: REG ER PHONE #: [phone] Exam Date: 05/31/20182006 FAX #: Reason: right shoulder pain EXAMS: CPT: [id number] XR SHOULDER 2+[place] [address] Fluoro Time: DAP (Gy m2): Air Kerma (mGy): Dictation Location B2 RIGHT SHOULDER 3 VIEWS: HISTORY: Pain COMMENT: Frontal radiographs of patient's right shoulder were obtained. The humerus was in internal and external rotation. The examination demonstrates no radiographic evidence for acute or destructive bony change. The glenohumeral joint space is unremarkable. The acromial-clavicular joint is with normal limits. The soft tissues are unremarkable. IMPRESSION: Normal radiographic examination of the right shoulder. at 2016 Reported and signed by: Erika Vogel M.D. CC: Yvon Bustillo MD; Mateo Arora MD PAGE 1 Signed Report Name: ILENE ROBLERO [facility] : 1975 Age/S: 43 / F [id number] [place] [address] Unit #: [id number] Loc: [place] [address] Phys: Yvon Bustillo MD Acct: [id number] Dis Date: Status: REG ER PHONE #: [phone] Exam Date: 05/31/20182006 FAX #: Reason: right shoulder pain EXAMS: CPT: [id number] XR SHOULDER 2+[place] [address] Fluoro Time: DAP (Gy m2): Air Kerma (mGy): < Continued> Technologist: Coyr Gupta, RT(R)(CT) Trnscb Date/Time: 05/31/2018 (2016) [email or web address] Orig Print D/T: S: 05/31/2018 (2019) PAGE 2 Signed Report
--- NOTE | 2019-06-19 18:00 | NUR ---
CALLED PT FOR TRIAGE, NO ANSWER.
--- NOTE | 2019-06-19 18:15 | NUR ---
no answer 1810 no answer 1815 looked outside for pt
== END | disposition left against medical advice (07) ==
LOC: ER 17:52
DX: Z53.21 Procedure and treatment not carried out due to patient leaving prior to being seen by health care provider (principal)

== ENCOUNTER 2021-07-21 08:16 | Emergency (ER) | payer BC ==
[~2021-07-21] VITALS: Ht 160 cm; Wt 93.0 kg
[2021-07-21] MEDS ORDERED: SODIUM CHLORIDE 0.9% 1000ML 1,000 ML IV SCH ×2 (08:30→09:15)
[2021-07-21] MEDS ORDERED: METOCLOPRAMIDE HCL 10 MG/2ML VIAL IV ONE (09:15)
[2021-07-21] MEDS ORDERED: DIPHENHYDRAMINE HCL 25 MG CAP PO ONE (09:15)
[2021-07-21 11:05] VITALS: BP 135/82
== END 2021-07-21 11:00 | disposition home or self-care (01) ==
LOC: ER 08:30
DX: R51.9 Headache, unspecified (principal); I10 Essential (primary) hypertension; F17.210 Nicotine dependence, cigarettes, uncomplicated
CPT/HCPCS: 70450; 99283; J2765; J7030

== ENCOUNTER 2021-08-13 14:27 | Emergency (ER) | payer BC, OTHER ==
[~2021-08-13] VITALS: Ht 160 cm; Wt 93.0 kg
== END 2021-08-13 16:38 | disposition home or self-care (01) ==
LOC: ER 15:06
DX: S80.02XA Contusion of left knee, initial encounter (principal); V43.52XA Car driver injured in collision with other type car in traffic accident, initial encounter; Y92.488 Other paved roadways as the place of occurrence of the external cause; I10 Essential (primary) hypertension
CPT/HCPCS: 99283